=== PATIENT | female | born 1950 ===

== ENCOUNTER 2024-05-30 05:10 | Day surgery (SDC) | payer OTHER ==
[2024-05-23 15:21] VITALS: BP 160/79
[~2024-05-30] VITALS: Ht 167.6 cm; Wt 64.4 kg
[~2024-05-30 05:10] MED LIST: ROSUVASTATIN CA10 MG PO; SYNTHROID88 MCG PO
[2024-05-30] MEDS ORDERED: BUPIVACAINE HCL/MPF 0.5% 30ML VIAL ONE (07:17)
[2024-05-30] MEDS ORDERED: METRONIDAZOLE/SODIUM CHLORIDE 500 MG/100 ML PIGGYBACK IV ONE ×2 (07:18→09:30)
[2024-05-30] MEDS ORDERED: LIDOCAINE HCL 1%/EPINEPHRINE 20ML VIAL IJ ONE ×2 (07:18→09:30)
[2024-05-30] MEDS ORDERED: CEFTRIAXONE SODIUM 2,000 MG VIAL ONE (07:18)
[2024-05-30] MEDS ORDERED: CEFTRIAXONE SODIUM 2,000 MG VIAL IV ONE (09:30)
[2024-05-30] MEDS ORDERED: BUPIVACAINE HCL/PF 0.25% 30ML VIAL InF ONE (09:30)
[2024-05-30] MEDS ORDERED: ONDANSETRON HCL 2 MG/ML VIAL ONE (10:41)
== END 2024-05-30 13:15 | disposition home or self-care (01) ==
LOC: CIR.AMB 05:10
PROVIDERS: ATTEND Colon & Rectal Surgery
DX: K56.51 Intestinal adhesions [bands], with partial obstruction (principal); K57.30 Diverticulosis of large intestine without perforation or abscess without bleeding; E03.9 Hypothyroidism, unspecified